=== PATIENT | male | born 1980 | race Caucasian/White ===

== ENCOUNTER 2021-03-14 08:49 | Outpatient (CLI) | payer OTHER | END 2021-03-14 08:50 | disposition home or self-care (01) | LOC: CSHWCC 08:49 | PROVIDERS: ATTEND Nurse Practitioner Family | DX: T79.6XXA Traumatic ischemia of muscle, initial encounter (principal) | CPT/HCPCS: G0277 ==

== ENCOUNTER 2022-03-17 18:11 | Emergency (ER) | payer BC, SELFPAY ==
[~2022-03-17 18:11] MED LIST: Iopamidol 370 76% 100 ML VIAL ONE
[2022-03-17 18:55] LABS: #Eosinphils 0.1 10x3/uL (0.0-0.5); #Monocytes 0.4 10x3/uL (0.0-1.1); #Neutrophils 2.4 10x3/uL (1.5-8.4); %Basophils 0.8 % (0.0-2.0); %Eosinophils 1.4 % (0.0-6.0); %Lymphocytes 39.2 % (18.0-47.0); %Neutrophils 49.4 % (40.0-75.0); Hemoglobin 14.6 g/dL (13.5-17.5); Mean Corpuscular HGB CONC 33.3 g/dL (32.0-36.0); Mean Corpuscular Volume 90.1 fl (81.2-95.1); Mean Platelet Volume 9.9 fl (7.4-10.4); Platelet Count 275 10x3/uL (150-450); RBC Distribution Width 13.3 % (11.5-14.5); Red Blood Cell (RBC) Count 4.86 10x6/uL (4.32-5.72); White Blood Cell (WBC) Count 4.9 10x3/uL (3.5-10.5)
[2022-03-17 19:12] LABS: ALT (SGPT) 23 U/L (8-55); AST (SGOT) 21 U/L (5-34); Albumin 4.5 g/dL (3.5-5.0); Alkaline Phosphatase 81 U/L (40-110); Anion Gap 12 mmol/L (10-20); BUN (Urea Nitrogen) 16 mg/dL (8.9-20.6); Bilirubin, Total 0.4 mg/dL (0.2-1.2); Calc. Creatinine Clearance 0 mL/min (70-130); Calcium 9.8 mg/dL (7.8-10.44); Carbon Dioxide 31 mmol/L (22-29); Chloride 104 mmol/L (98-107); Estimated GFR 89; Globulin 2.6 g/dL (2.4-3.5); Glucose 81 mg/dL (70-105); Protein, Total 7.1 g/dL (6.0-8.3); Sodium 143 mmol/L (136-145)
== END 2022-03-17 22:00 | disposition home or self-care (01) ==
LOC: CSHERS 18:11
DX: H57.9 Unspecified disorder of eye and adnexa (principal)
CPT/HCPCS: 70496; 80053; 84484; 85025; Q9967